=== PATIENT | female | born 1995 | race African-American/Black ===

== ENCOUNTER 2020-08-07 15:05 | Emergency (ER) | payer OTHER ==
[2020-08-07] MEDS ORDERED: Ondansetron 4 MG Tab.DIS PO ONE (15:06)
--- NOTE | 2020-08-07 18:06 | EDM.PDOC ---
ED HPI GENERAL MEDICAL PROBLEM - General Chief Complaint: Abdominal Pain Stated Complaint: MEDICAL EXAMINATION Time Seen by Provider: 08/07/20 17:50 Source of Information: Reports: Patient, RN, RN Notes Reviewed History Limitations: Reports: No Limitations - History of Present Illness INITIAL COMMENTS - FREE TEXT/NARRATIVE: Ivana is a 25 y/o female who is s/p exploratory lap for chronic uterine pain presents to the ED via personal vehicle with complaints of nausea and vomiting. The patient reports her nausea began two days ago and has worsened in severity to the point that she began to vomit this morning; she has subsequently vomited numerous times today. She denies recent illness, fever, shaking chills, headache, vision changes, shortness of breath, palpitations, hematemesis, dysuria, or hematuria. She does attest to diarrhea two days ago, frequent urination, and diffuse abdominal pain. She denies tobacco, alcohol, or recreational drug use. Right Upper Abdomen Pain Score (Numeric/FACES): 5 - Related Data Allergies Allergy/AdvReac Type Severity Reaction Status Date / Time No Known Allergies Allergy Verified 08/07/20 15:24 Past Medical History - Past Health History Medical/Surgical History: Denies Medical/Surgical History - Infectious Disease History Infectious Disease History: Reports: None Social & Family History - Tobacco Use Tobacco Use Status *Q: Never Tobacco User Second Hand Smoke Exposure: No - Caffeine Use Caffeine Use: Reports: Tea - Recreational Drug Use Recreational Drug Use: No ED ROS GENERAL - Review of Systems Review Of Systems: Comprehensive ROS is negative, except as noted in HPI. ED EXAM, GI/ABD - Physical Exam Exam: See Below Exam Limited By: No Limitations General Appearance: Alert, No Apparent Distress Eyes: Bilateral: Normal Appearance, EOMI Nose: Normal Inspection, Normal Mucosa, No Blood Throat/Mouth: Normal Voice, No Airway Compromise. No: Normal Inspection, Normal Oropharynx (Dry mucous membranes) Head: Atraumatic, Normocephalic Neck: Normal Inspection, Supple, Non-Tender, Full Range of Motion. No: Lymphadenopathy (L), Lymphadenopathy (R) Respiratory/Chest: No Respiratory Distress, Lungs Clear, Normal Breath Sounds, No Accessory Muscle Use, Chest Non-Tender Cardiovascular: Normal Peripheral Pulses, Regular Rate, Rhythm, No Edema, No Gallop, No JVD, No Murmur, No Rub GI/Abdominal Exam: Soft, No Organomegaly, No Distention, No Abnormal Bruit, No Mass, Pelvis Stable, Guarding, Tender (To palpation of bilateral lower quadrants, R>L), Abnormal Bowel Sounds (Hypoactive bowel sounds). No: Rigid, Rebound, Hernia (Female) Exam: Deferred Rectal (Female) Exam: Deferred Back Exam: Normal Inspection, Full Range of Motion Extremities: Normal Inspection, Normal Range of Motion, Non-Tender, Normal Capillary Refill, No Pedal Edema Neurological: Alert, Oriented, CN II-XII Intact, Normal Cognition, Normal Gait, Normal Reflexes, No Motor/Sensory Deficits Psychiatric: Normal Affect, Normal Mood Skin Exam: Warm, Dry, Intact, Normal Color, No Rash. No: Ecchymosis, Erythema, Increased Warmth, Mottled, Pallor, Petechiae Lymphatic: No Adenopathy Course - Vital Signs Last Recorded V/S: Last Vital Signs Temp 97.2 F 08/07/20 15:24 Pulse 72 08/07/20 15:24 Resp 20 08/07/20 15:24 BP 124/80 08/07/20 15:24 Pulse Ox 100 08/07/20 15:24 - Orders/Labs/Meds Labs: Laboratory Tests 08/07/20 08/07/20 08/07/20 Range/Units 17:45 17:45 18:15 WBC 7.7 (5.0-10.0) 10^3/uL RBC 3.74 L (4.2-5.4) 10^6/uL Hgb 12.2 (12.0-16.0) g/dL Hct 34.5 L (37.0-47.0) % MCV 92.2 (80-100) fL MCH 32.6 (27.0-34.0) pg MCHC 35.4 H (33.0-35.0) g/dL Plt Count 326 (150-450) 10^3/uL Neut % (Auto) 49.8 (42.2-75.2) % Lymph % (Auto) 34.2 (20.5-50.1) % [place] % (Auto) 10.3 H (2-8) % Eos % (Auto) 5.3 H (1.0-3.0) % Baso % (Auto) 0.4 (0.0-1.0) % ESR 7 (0-20) mm/hr Sodium (136-145) mmol/L Potassium (3.5-5.1) mmol/L Chloride (98-107) mmol/L Carbon Dioxide (21-32) mmol/L Anion Gap (7-13) mEq/L BUN (7-18) mg/dL Creatinine (0.55-1.02) mg/dL Est Cr Clr Drug Dosing mL/min Estimated GFR (MDRD) BUN/Creatinine Ratio (No establ ref range) Glucose (70-99) mg/dL Calcium (8.5-10.1) mg/dL Total Bilirubin (0.2-1.0) mg/dL AST (15-37) U/L ALT (14-59) U/L Alkaline Phosphatase (46-116) U/L C-Reactive Protein (0.0-0.9) mg/dL Total Protein (6.4-8.2) g/dL Albumin (3.4-5.0) g/dL Globulin Albumin/Globulin Ratio Urine Color Yellow (YELLOW) Urine Appearance Slightly cloudy (CLEAR) Urine pH 6.5 (5.0-9.0) Ur Specific [place] 1.025 (1.005-1.030) Urine Protein Trace H (NEGATIVE) Urine Glucose (UA) Negative (NEGATIVE) Urine Ketones 15 H (NEGATIVE) Urine Occult Blood Moderate H (NEGATIVE) Urine Nitrite Negative (NEGATIVE) Urine Bilirubin Negative (NEGATIVE) Urine Urobilinogen 0.2 (0.2-1.0) mg/dL Ur Leukocyte Esterase Negative (NEGATIVE) Urine RBC 10-20 H /HPF Urine WBC 0-5 (0-5/HPF) /HPF Ur Epithelial Cells Few (NOT SEEN) /HPF Urine Bacteria Many H (0-FEW/HPF) /HPF Urine Mucus Few H (NOT SEEN) /LPF Urine HCG, Qual Negative 08/07/20 Range/Units 18:15 WBC (5.0-10.0) 10^3/uL RBC (4.2-5.4) 10^6/uL Hgb (12.0-16.0) g/dL Hct (37.0-47.0) % MCV (80-100) fL MCH (27.0-34.0) pg MCHC (33.0-35.0) g/dL Plt Count (150-450) 10^3/uL Neut % (Auto) (42.2-75.2) % Lymph % (Auto) (20.5-50.1) % [place] % (Auto) (2-8) % Eos % (Auto) (1.0-3.0) % Baso % (Auto) (0.0-1.0) % ESR (0-20) mm/hr Sodium 140 (136-145) mmol/L Potassium 3.8 (3.5-5.1) mmol/L Chloride 103 (98-107) mmol/L Carbon Dioxide 29 (21-32) mmol/L Anion Gap 11.8 (7-13) mEq/L BUN 7 (7-18) mg/dL Creatinine 0.85 (0.55-1.02) mg/dL Est Cr Clr Drug Dosing 108.46 mL/min Estimated GFR (MDRD) > 60 BUN/Creatinine Ratio 8.2 (No establ ref range) Glucose 84 (70-99) mg/dL Calcium 8.5 (8.5-10.1) mg/dL Total Bilirubin 0.8 (0.2-1.0) mg/dL AST 129 H (15-37) U/L ALT 69 H (14-59) U/L Alkaline Phosphatase 58 (46-116) U/L C-Reactive Protein < 0.2 (0.0-0.9) mg/dL Total Protein 7.3 (6.4-8.2) g/dL Albumin 3.6 (3.4-5.0) g/dL Globulin 3.7 Albumin/Globulin Ratio 1.0 Urine Color (YELLOW) Urine Appearance (CLEAR) Urine pH (5.0-9.0) Ur Specific [place] (1.005-1.030) Urine Protein (NEGATIVE) Urine Glucose (UA) (NEGATIVE) Urine Ketones (NEGATIVE) Urine Occult Blood (NEGATIVE) Urine Nitrite (NEGATIVE) Urine Bilirubin (NEGATIVE) Urine Urobilinogen (0.2-1.0) mg/dL Ur Leukocyte Esterase (NEGATIVE) Urine RBC /HPF Urine WBC (0-5/HPF) /HPF Ur Epithelial Cells (NOT SEEN) /HPF Urine Bacteria (0-FEW/HPF) /HPF Urine Mucus (NOT SEEN) /LPF Urine HCG, Qual Meds: Medications Discontinued Medications Generic Name Dose Route Start Last Admin Trade Name Freq PRN Reason Stop Dose Admin Iopamidol 100 ml 08/07/20 18:52 08/07/20 18:56 Iopamidol 612 Mg/Ml 100 Ml Bottle IVPUSH 08/07/20 18:53 100 ml ONETIME ONE Administration Ondansetron HCl Confirm 08/07/20 20:33 Ondansetron 4 Mg Tab.Dis Administered 08/07/20 20:34 Dose 8 mg .ROUTE .STK-MED ONE Ondansetron HCl 4 mg 08/07/20 15:06 Ondansetron 4 Mg Tab.Dis PO 08/07/20 15:07 .STK-MED ONE - Re-Assessments/Exams Free Text/Narrative Re-Assessment/Exam: 08/07/[address] abdomen/pelvis obtained. Zofran ODT administered. CBC unremarkable for acute processes; no evidence of anemia or infection. Kidney function, liver function, and electrolytes appropriate via CMP. CRP WNL. UA remarkable for occult blood, RBCs, and bacteria; culture sent but will not treat as likely contaminant. CT revealed 4.1cm simple cyst to right ovary; 1.6cm collapsed cyst to L ovary consistent with acute rupture as trace amount of physiologic free fluid noted. Diverticula without diverticulosis noted. Moderate stool burden appreciated. Discussed findings of examination, lab work, and imaging with patient. Will treat acute nausea with Zofran ODT. Patient counseled to utilize OTC stool softeners/laxatives for constipation. Red flag signs and symptoms which would warrant reevaluation reviewed. Patient verbalized understanding and agreement with the plan of care. Departure - Departure Time of Disposition: 20:04 Disposition: Home, Self-Care 01 Condition: Good Clinical Impression: Diverticulosis, Ruptured cyst of left ovary Ovarian cyst Qualifiers: Laterality: right Qualified Code(s): N83.201 - Unspecified ovarian cyst, right side Constipation Qualifiers: Constipation type: unspecified constipation type Qualified Code(s): K59.00 - Constipation, unspecified - Discharge Information Instructions: Ovarian Cyst, [id number], Diverticulosis Referrals: PCP,None [Primary Care Provider] - Forms: ED Department Discharge Additional Instructions: Rx: Zofran 1.) You may take ibuprofen (Advil/Motrin) 400mg every six hours, as pain persists. You may also take acetaminophen (Tylenol) 650mg every six hours, as pain persists. You may stagger these medications so you are receiving a dose every three hours. 2.) Drink plenty of water to stay hydrated. 3.) You may try a stool softener or laxative to help with constipation. Sepsis Event Note (ED) - Evaluation Sepsis Screening Result: No Definite Risk
[2020-08-07 18:40] LABS: ANION GAP 11.8 mEq/L (7-13); CHLORIDE,CL 103 mmol/L (98-107); SODIUM,NA 140 mmol/L (136-145)
[2020-08-07] MEDS ORDERED: Iopamidol 612 MG/ML 100 ML Bottle IVPUSH ONE (18:52)
--- NOTE | 2020-08-07 20:01 | CT ---
PROCEDURE INFORMATION: Exam: CT Abdomen And Pelvis With Contrast Exam date and time: 08/07/2020 7:20 PM Age: 25 years old Clinical indication: Other: S/P exploratory lap for uterine pain at end of June; Prior surgery; Surgery date: <1 month; Additional info: Rlq pain with nausea x3 days with vomiting TECHNIQUE: Imaging protocol: Computed tomography of the abdomen and pelvis with contrast. Total images: 276 Radiation optimization: All CT scans at this facility use at least one of these dose optimization techniques: automated exposure control; mA and/or kV adjustment per patient size (includes targeted exams where dose is matched to clinical indication); or iterative reconstruction. Contrast material: [id number]; Contrast volume: 100 ml; Contrast route: INTRAVENOUS (IV); COMPARISON: No relevant prior studies available. FINDINGS: Lungs: Visualized lung bases are clear. Heart: Heart size normal. Mediastinal space: The visualized distal esophagus is normal. Liver: Normal contour. No mass lesions. No intrahepatic biliary ductal dilatation. Gallbladder and bile ducts: Normal. No calcified stones. No ductal dilation. Pancreas: Normal. No inflammatory changes or ductal dilation. Spleen: Normal. No splenomegaly. Adrenal glands: Normal. No adrenal mass. Kidneys and ureters: No acute abnormalities. No hydronephrosis or hydroureter. No urinary tract stones are identified. Stomach and bowel: The stomach is unremarkable. There are few fluid-filled small bowel loops in the mid to lower abdomen measuring up to 2.2 cm diameter without tomasa dilatation or wall thickening. No transition point to suggest obstruction. There is a moderate amount of stool distributed in the mid and proximal colon suggesting possible constipation. Mild diverticulosis involving the distal colon without evidence of acute diverticulitis. Appendix: The appendix is normal in caliber and demonstrates no evidence of appendicitis. Intraperitoneal space: Minimal amount of intrapelvic free fluid, within physiologic range for a young woman. No free air. Vasculature: No acute process. No abdominal aortic aneurysm. Lymph nodes: No adenopathy. Urinary bladder: The urinary bladder is largely contracted without gross abnormality. Reproductive: The uterus appears anteflexed without acute abnormality. 1.6 cm collapsed appearing peripherally enhancing focus in the left ovary most consistent with a recently ruptured and involuting ovarian follicle. Simple appearing cyst or dominant follicle in the right ovary measuring 4.1 x 3.6 cm. No further imaging is recommended. (Reference: Espinoza) Bones/joints: No acute osseous abnormalities. Soft tissues: Breast implants noted without gross hardware complication. Unremarkable. IMPRESSION: 1. There is a 4.1 cm simple appearing cyst or dominant follicle in the right ovary. No further imaging is recommended. 2. There is a 1.6 cm collapsed appearing peripherally enhancing cystic focus in the left ovary most consistent with a recently ruptured and involuting ovarian follicle. 3. Trace intrapelvic free fluid, within physiologic range. 4. Moderate stool in the mid and proximal colon. There are few distal colonic diverticula without evidence of diverticulitis. 5. Normal appendix. 6. Additional non-emergent findings detailed above. REFERENCES: Alexis et al. Management of Incidental Adnexal Findings on CT and MRI: A White Paper of the ACR Incidental Findings Committee, J Am Yanci Radiol. 2019;17(2):248-254.
[2020-08-07] MEDS ORDERED: Ondansetron 4 MG Tab.DIS ONE (20:33)
== END 2020-08-07 20:40 | disposition home or self-care (01) ==
LOC: DL.ED 15:05
DX: K59.00 Constipation, unspecified (principal); N83.201 Unspecified ovarian cyst, right side; N83.202 Unspecified ovarian cyst, left side; K57.30 Diverticulosis of large intestine without perforation or abscess without bleeding
CPT/HCPCS: 36415; 74177; 80053; 81001; 81025; 85025; 85651; 86140; 87086; 99284; 99284-25; A9270-GY; Q9967